=== PATIENT | female | born 1940 | race African-American/Black ===

== ENCOUNTER 2023-05-01 10:23 | Inpatient (IN) | payer MEDICARE, BC ==
[~2023-05-01] VITALS: Ht 160 cm; Wt 74.8 kg
[~2023-05-01 10:23] MED LIST: ASCO-386 PO; CHOL-36; MULT-1195 MT; OMEG-118 MT; TRIA1TAB92 MT; VITA200T8 PO
[2023-05-01 11:11] LABS: BASOPHILS % 0.2 % (0.0-2.0); HEMATOCRIT. 33.5 % (36.0-48.0); LYMPHOCYTES % 16.8 % (20.0-50.0); MEAN CORPUSCULAR HEMOGLOBIN 29.5 pg (28.0-32.0); MEAN CORPUSCULAR HGB CONC 32.8 g/dL (31.0-37.0); MEAN CORPUSCULAR VOLUME 89.7 fL (81.0-99.0); MEAN PLATELET VOLUME 7.2 fl (7.4-10.4); PLATELET 212 x1000/uL (130-400); RED BLOOD CELL COUNT 3.74 mill/uL (4.2-5.4); RED CELL DISTRIBUTION WIDTH 14.3 % (11.6-14.6); WHITE BLOOD COUNT 5.4 x1000/uL (4.5-11.0)
[2023-05-01 11:22] LABS: CHLORIDE 102 mEq/L (98-107); INDEX HEMOLYSI 1 (1-3); INDEX ICTERIC 1 (1-4); INDEX LIPEMIC 1 (1-3); POTASSIUM 3.5 mEq/L (3.5-5.1); SODIUM 134 mEq/L (136-145)
[2023-05-01 12:00] LABS: ALANINE AMINOTRANSFERASE 22 IU/L (13-61); ALBUMIN 3.7 g/dL (3.4-5.0); ASPARTATE AMINOTRANSFERASE 35 IU/L (15-37); BILIRUBIN TOTAL 0.8 mg/dL (0.1-1.0); CALCIUM 9.5 mg/dL (8.5-10.1); CARBON DIOXIDE 23 mEq/L (21-32); CREATININE 1.1 mg/dL (0.6-1.3); GLUCOSE 105 mg/dL (70-105); PROTEIN TOTAL 9.5 g/dL (6.0-8.3); UREA NITROGEN BLOOD 21 mg/dL (7-21)
[2023-05-01] MEDS ORDERED: LIDOCAINE HCL/EPINEPHRINE 1%-EPI 1:100,000 20 ML VIAL INFIL ONE (12:00)
[2023-05-01 12:17] LABS: NT PRO B-TYPE NATRIURETIC PEP 331 pg/mL (5-125)
[2023-05-01] MEDS ORDERED: IPRATROPIUM/ALBUTEROL 0.5-3(2.5)MG/3ML NEB HHN PRN (14:30)
[2023-05-01] MEDS ORDERED: ONDANSETRON HCL 4MG/2ML INJ IV PRN (14:30)
[2023-05-01] MEDS ORDERED: DOCUSATE SODIUM 100MG CAPSULE PO PRN (14:30)
[2023-05-01] MEDS ORDERED: GUAIFENESIN 200MG/10ML SUGAR FREE UDC PO PRN (14:30)
[2023-05-01] MEDS ORDERED: CLONIDINE 0.1MG TABLET PO PRN (14:30)
[2023-05-01] MEDS ORDERED: ACETAMINOPHEN 325MG TABLET PO PRN ×2 (14:30)
[2023-05-01] MEDS ORDERED: MAGNESIUM/ALUMINUM HYDROXIDE/SIMETHICONE 30ML UDC PO PRN (14:30)
[2023-05-01] MEDS ORDERED: KETOROLAC 15MG/ML VIAL IV NR (14:45)
[2023-05-01 14:52] LABS: TROPONIN I HIGH SENSITIVITY 8 ng/L (<54)
[2023-05-01] MEDS: SODIUM CHLORIDE 0.9% 1,000 ML IV SCH ×2 (15:00→22:23)
[2023-05-01 17:12] LABS: CLARITY URINE CLEAR (CLEAR); COLOR URINE YELLOW (YELLOW); GLUCOSE URINE NEGATIVE (NEGATIVE); KETONES URINE TRACE (NEGATIVE); LEUKOCYTE ESTERASE URINE NEGATIVE (NEGATIVE); NITRITE URINE NEGATIVE (NEGATIVE); OCCULT BLOOD URINE TRACE (NEGATIVE); PROTEIN URINE NEGATIVE (NEGATIVE); SPECIFIC GRAVITY URINE 1.009 (1.005-1.030); UROBILINOGEN URINE 0.2 E.U./dL (0.2-1.0)
[2023-05-01 17:13] LABS: BACTERIA URINE NONE SEEN; SQUAMOUS EPITHELIAL CELL URINE NONE SEEN /lpf (RARE/1+); WBC URINE NONE SEEN /hpf (0-2); YEAST URINE NONE SEEN
[2023-05-01 17:27] LABS: RBC URINE 0-2 /hpf (0-2)
[2023-05-01 20:00] VITALS: BP 146/67; PULSE 65; RESP 20; TEMP 97.1
[2023-05-01 20:30] VITALS: BP 146/67; PULSE 65; RESP 20; TEMP 97.1
[2023-05-01] MEDS: KETOROLAC 15MG/ML VIAL IV PRN (22:21)
[2023-05-01] MEDS ORDERED: FERR-63 PO (23:41)
[2023-05-01 23:53] LABS: CREATINE KINASE MB FRACTION 9.4 ng/mL (0.5-3.6)
[2023-05-02] VITALS: BP 143/56; PULSE 74; RESP 20; TEMP 97.3
[2023-05-02 04:00] VITALS: BP_SYST 111; BP_SYST 135; BP_DIAS 50; BP_DIAS 57; PULSE 69; PULSE 74; RESP 18; RESP 20; TEMP 97.1; TEMP 98.2
[2023-05-02 05:50] LABS: HEMATOCRIT 29.5 % (36.0-48.0); HEMOGLOBIN 9.8 g/dL (12.0-16.0); MEAN CORPUSCULAR HEMOGLOBIN 29.5 pg (28.0-32.0); MEAN CORPUSCULAR HGB CONC 33.2 g/dL (31.0-37.0); MEAN CORPUSCULAR VOLUME 88.9 fL (81.0-99.0); PLATELET 192 x1000/uL (130-400); RED BLOOD CELL COUNT 3.32 mill/uL (4.2-5.4); RED CELL DISTRIBUTION WIDTH 14.1 % (11.6-14.6)
[2023-05-02 06:05] LABS: CALCIUM 8.7 mg/dL (8.5-10.1); POTASSIUM 3.4 mEq/L (3.5-5.1)
[2023-05-02 06:13] LABS: CREATINE KINASE MB FRACTION 5.6 ng/mL (0.5-3.6); CREATININE 1.3 mg/dL (0.6-1.3)
[2023-05-02 08:00] VITALS: BP 126/63; PULSE 72; RESP 18; TEMP 98.6
[2023-05-02] MEDS: DEXT 5%/LACTATED RINGERS 1,000 ML IV SCH ×2 (08:38→21:08)
[2023-05-02] MEDS: KETOROLAC 15MG/ML VIAL IV PRN ×2 (09:29→21:09)
[2023-05-02 12:00] VITALS: BP 126/58; PULSE 64; RESP 19; TEMP 97.7
[2023-05-02 16:00] VITALS: BP 135/50; PULSE 74; RESP 18; TEMP 98.2
[2023-05-02 20:00] VITALS: BP 137/52; PULSE 82; RESP 20; TEMP 99.5
[2023-05-03] VITALS: BP 116/66; PULSE 70; RESP 18; TEMP 99.2
[2023-05-03 04:00] VITALS: BP 126/61; PULSE 65; RESP 20; TEMP 99.1
[2023-05-03 08:00] VITALS: BP 159/73; PULSE 63; RESP 17; TEMP 97.9
[2023-05-03] MEDS: KETOROLAC 15MG/ML VIAL IV PRN (09:07)
[2023-05-03 12:00] VITALS: BP 114/78; PULSE 113; RESP 17; TEMP 98
[2023-05-03] MEDS ORDERED: KETO10TA2 MT (14:52)
[2023-05-03 14:53] VITALS: BP_SYST 114; BP_SYST 154; BP_DIAS 78; BP_DIAS 81; PULSE 113; PULSE 81; TEMP 98; O2SAT 97
== END 2023-05-03 17:30 | disposition home health service (06) | DRG 74 ==
LOC: ER 11:12 → EDBEDREQ 16:11 → 7WST 20:18
PROVIDERS: ADMIT Internal Medicine; ATTEND Internal Medicine
PROC: 0HQ0XZZ Repair Scalp Skin, External Approach (ICD-10-PCS; principal; 2023-05-01)
DX: G90.8 Other disorders of autonomic nervous system (principal); S12.14XA Type III traumatic spondylolisthesis of second cervical vertebra, initial encounter for closed fracture; S01.01XA Laceration without foreign body of scalp, initial encounter; I10 Essential (primary) hypertension; D63.8 Anemia in other chronic diseases classified elsewhere; D64.89 Other specified anemias; Z90.49 Acquired absence of other specified parts of digestive tract; W18.39XA Other fall on same level, initial encounter; Y93.89 Activity, other specified; Y92.002 Bathroom of unspecified non-institutional (private) residence as the place of occurrence of the external cause; Y99.8 Other external cause status
CPT/HCPCS: 36415; 71045; 72141; 72170; 80048; 80053; 81003; 82553; 83880; 84484; 85025; 85027; 93005; 93306; 93970; 97166; 99285; J1885; J3490; J7121

== ENCOUNTER 2025-03-06 22:06 | Emergency (ER) | payer MEDICARE, BC ==
[~2025-03-06] VITALS: Ht 160 cm; Wt 72.0 kg
[~2025-03-06 22:06] MED LIST changes: +FERR-63 PO; +KETO10TA2 MT
[2025-03-06 22:08] VITALS: O2SAT 98
[2025-03-06 22:53] LABS: BASOPHILS % 0.6 % (0.0-2.0); EOSINOPHILS % 1.7 % (0.0-5.0); HEMATOCRIT. 30.6 % (36.0-48.0); HEMOGLOBIN. 10.1 g/dL (12.0-16.0); LYMPHOCYTES % 20.6 % (20.0-50.0); MEAN PLATELET VOLUME 7.7 fl (7.4-10.4); MONOCYTES % 14.1 % (2.0-8.0); NEUTROPHILS % 63.0 % (40.0-76.0); PLATELET 251 x1000/uL (130-400); RED BLOOD CELL COUNT 3.46 mill/uL (4.2-5.4); RED CELL DISTRIBUTION WIDTH 14.7 % (11.6-14.6)
[2025-03-06 23:07] LABS: CREATININE 1.6 mg/dL (0.6-1.0); UREA NITROGEN BLOOD 26 mg/dL (9-23)
[2025-03-06 23:10] LABS: TROPONIN I HIGH SENSITIVITY 8 ng/L (3.0-34)
[2025-03-07 00:45] VITALS: BP 106/58; PULSE 86; RESP 20; TEMP 36.9; O2SAT 96
== END 2025-03-07 00:56 | disposition left against medical advice (07) ==
LOC: ER 22:06 → CMPBEDREQ 03-07 04:37
DX: R06.02 Shortness of breath (principal); I10 Essential (primary) hypertension; Z79.899 Other long term (current) drug therapy
CPT/HCPCS: 36415; 71045; 80048; 83880; 84484; 85025; 93005; 99285